=== PATIENT | male | born 1980 | race Two or more races ===

== ENCOUNTER 2017-10-14 08:42 | Outpatient (CLI) | payer OTHER ==
[~2017-10-14 08:42] MED LIST: AMOX1TAB12 PO; TUSSI PRES-B L120 M1 PO; VYVANSE60 MG; WELLBUTRIN XL300 MG
== END 2017-10-14 13:57 | disposition home or self-care (01) ==
LOC: MRI 08:42
DX: M50.90 Cervical disc disorder, unspecified, unspecified cervical region (principal)
CPT/HCPCS: 72141

== ENCOUNTER 2019-03-02 11:59 | Outpatient (CLI) | payer OTHER | END 2019-03-02 13:26 | disposition home or self-care (01) | LOC: RAD 11:59 | DX: M84.375A Stress fracture, left foot, initial encounter for fracture (principal) ==